=== PATIENT | male | born 1970 | race Caucasian/White ===

== ENCOUNTER 2021-06-29 22:14 | Emergency (ER) | payer SELFPAY ==
[~2021-06-29] VITALS: Ht 167.6 cm; Wt 68.2 kg
[~2021-06-29 22:14] MED LIST: NORCO 325 MG-51 TAB PO; PRILOTC PO; ULTRAM 50MG TAB50 MG
[2021-06-29 22:49] VITALS: TEMP 97.1
[2021-06-29] MEDS ORDERED: AMOXICILLIN 8751 TAB PO (23:02)
[2021-06-29 23:56] VITALS: BP 127/77; PULSE 60
== END 2021-06-29 23:56 | disposition home or self-care (01) ==
LOC: COL.ER 22:14
DX: R59.0 Localized enlarged lymph nodes (principal); F17.200 Nicotine dependence, unspecified, uncomplicated